=== PATIENT | female | born 1945 | race Caucasian/White ===

== ENCOUNTER 2018-04-09 16:21 | Inpatient (IN) | payer MEDICARE, MEDICAID ==
[2018-04-09] MEDS: ADVAIR HFA 115/21MCG INHALER INH (04:41)
[2018-04-09 15:44] LABS: BASO % 0.3 % (0.0-1.0); EOS # 0.1 10^3/uL (0.0-0.50); EOS % 0.9 % (0.0-3.0); HEMATOCRIT 34.4 % (36.0-47.0); HEMOGLOBIN 11.2 g/dl (12.0-15.5); IMMATURE GRANULOCYTE % 0.7 % (0-3.0); LYMPH # 2.1 10^3/uL (1.5-4.5); LYMPH % 24.1 % (24.0-44.0); MEAN CORPUSCULAR HEMOGLOBIN 28.6 pg (27.0-33.0); MEAN CORPUSCULAR HGB CONC 32.6 g/dl (32.0-36.5); MEAN CORPUSCULAR VOLUME 87.8 fl (80.0-96.0); MONO # 0.4 10^3/uL (0.0-0.8); MONO % 4.7 % (0.0-5.0); NEUTROPHILS % 69.3 % (36.0-66.0); PLATELET COUNT, AUTOMATED 181 10^3/uL (150-450); RED BLOOD COUNT 3.92 10^6/uL (4.00-5.40); RED CELL DISTRIBUTION WIDTH 13.8 % (11.5-14.5); WHITE BLOOD COUNT 8.7 10^3/uL (4.0-10.0)
[2018-04-09 15:47] LABS: BEDSIDE GLUCOSE 192 MG/DL (83-110)
[2018-04-09 16:04] LABS: ABG BASE EXCESS -2.6 (-2.0-2.0); ABG HCO3 26.7 MEQ/L (22.0-26.0); ABG O2 SATURATION 94.4 % (95.0-99.0); ABG PARTIAL PRESSURE O2 82.6 mmHg (75.0-100.0); ABG STANDARD HCO3 22.2 MEQ/L (22.0-26.0); ABG TOTAL CO2 28.8 MEQ/L (23.0-31.0); ALBUMIN 3.4 GM/DL (3.2-5.2); ALBUMIN/GLOBULIN RATIO 0.87 (1.00-1.93); ALKALINE PHOSPHATASE 56 U/L (45-117); ALT/SGPT 12 U/L (12-78); ANION GAP 9 MEQ/L (8-16); AST/SGOT 13 U/L (7-37); BILIRUBIN,DIRECT < 0.1 MG/DL (0.0-0.2); BILIRUBIN,TOTAL 0.3 MG/DL (0.2-1.0); BLOOD UREA NITROGEN 23 MG/DL (7-18); CALCIUM LEVEL 8.4 MG/DL (8.8-10.2); CARBON DIOXIDE LEVEL 28 MEQ/L (21-32); CHLORIDE LEVEL 94 MEQ/L (98-107); CREATININE FOR GFR 1.47 MG/DL (0.55-1.30); GLOMERULAR FILTRATION RATE 37.2 (>39); GLUCOSE, FASTING 185 MG/DL (70-100); SODIUM LEVEL 131 MEQ/L (136-145); TOTAL PROTEIN 7.3 GM/DL (6.4-8.2)
[2018-04-09 16:07] LABS: ABG PARTIAL PRESSURE CO2 69.5 mmHg (35.0-45.0); ABG pH (ARTERIAL) 7.202 UNITS (7.350-7.450); POTASSIUM SERUM 5.4 MEQ/L (3.5-5.1)
[2018-04-09 16:14] LABS: VALPROIC ACID (DEPAKOTE) 82.8 UG/ML (50.0-100.0)
[2018-04-09] MEDS: NALOXONE INJ 0.4 MG/1 ML VIAL (J2310) IV (16:19)
[2018-04-09 17:48] LABS: KETONE, URINE AUTO RFX TRACE mg/dL (NEGATIVE); LEUKOCYTE ESTERASE UR AUTO RFX NEGATIVE (NEGATIVE); MUCUS, URINE RFX SMALL (NEGATIVE); NITRITE, URINE AUTO RFX NEGATIVE (NEGATIVE); RBC, URINE AUTO RFX 1 /HPF (0-3); SPECIFIC GRAVITY UR AUTO RFX 1.021 (1.002-1.035); SQUAM EPITHELIAL CELL UR AURFX 0 /HPF (0-6); WBC, URINE AUTO RFX 0 /HPF (0-3)
[2018-04-09 18:14] LABS: LACTIC ACID SEPSIS PROTOCOL 1.8 MMOL/L (0.4-2.0)
[2018-04-09] MEDS: NS 1,000 ML IV ×2 (18:36→21:50)
[2018-04-09] MEDS: DIVALPROEX 500MG *ER* TAB PO (21:00)
[2018-04-09] MEDS: GABAPENTIN 300 MG CAP PO (21:00)
[2018-04-09 21:19] LABS: ABG BASE EXCESS -0.6 (-2.0-2.0); ABG HCO3 26.3 MEQ/L (22.0-26.0); ABG O2 SATURATION 99.1 % (95.0-99.0); ABG PARTIAL PRESSURE CO2 53.5 mmHg (35.0-45.0); ABG PARTIAL PRESSURE O2 157.5 mmHg (75.0-100.0); ABG TOTAL CO2 27.9 MEQ/L (23.0-31.0); ABG pH (ARTERIAL) 7.309 UNITS (7.350-7.450)
[2018-04-09] MEDS ORDERED: GLUCOSE 4 GM CHEW TABLET PO (21:30)
[2018-04-09] MEDS ORDERED: GLUCAGON FOR INJ 1 MG VIAL (J1610) SC (21:30)
[2018-04-09] MEDS ORDERED: DEXTROSE 50% 50 ML SYRINGE IV (21:30)
[2018-04-09] MEDS ORDERED: IPRATROPIUM 0.5MG/ALBUTEROL 2.5MG INH SOL UD 3ML (DUONEB)(J7620) NEB (21:30)
[2018-04-09 23:12] LABS: AMPHETAMINES LEVEL URINE NEGATIVE (NEGATIVE); BARBITURATES URINE NEGATIVE (NEGATIVE); BENZODIAZEPINES URINE NEGATIVE (NEGATIVE); CANNABINOIDS URINE NEGATIVE (NEGATIVE); COCAINE METABOLITE URINE NEGATIVE (NEGATIVE); METHADONE URINE NEGATIVE (NEGATIVE); OPIATES URINE POSITIVE (NEGATIVE); PHENCYCLIDINE URINE NEGATIVE (NEGATIVE)
[2018-04-10 00:51] LABS: BEDSIDE GLUCOSE 110 MG/DL (83-110)
[2018-04-10] MEDS: FAMOTIDINE IV BAG 20 MG in APPROPRIATE DILUENT 1 EA IV ×3 (00:51→20:20)
[2018-04-10] MEDS: HEPARIN SOD (PORCINE) 5000 UNITS/ML VIAL SC ×2 (00:54→06:12)
[2018-04-10 03:06] LABS: POTASSIUM SERUM 6.2 MEQ/L (3.5-5.1)
[2018-04-10] MEDS ORDERED: SOD POLYSTYRENE SULFONATE SUSP 30 GM/120 ML ENEMA PR (04:00)
[2018-04-10] MEDS: NS 1,000 ML IV ×3 (04:19→22:12)
[2018-04-10] MEDS: SOD POLYSTYRENE SULFONATE SUSP 15 GM/60 ML UD PR (04:19)
[2018-04-10] MEDS: NALOXONE INJ 0.4 MG/1 ML VIAL (J2310) IV (04:26)
[2018-04-10 04:29] LABS: ABG BASE EXCESS -0.5 (-2.0-2.0); ABG HCO3 28.5 MEQ/L (22.0-26.0); ABG PARTIAL PRESSURE CO2 71.8 mmHg (35.0-45.0); ABG PARTIAL PRESSURE O2 100.4 mmHg (75.0-100.0); ABG STANDARD HCO3 24.1 MEQ/L (22.0-26.0); ABG TOTAL CO2 30.7 MEQ/L (23.0-31.0); ABG pH (ARTERIAL) 7.216 UNITS (7.350-7.450)
[2018-04-10] MEDS: IPRATROPIUM 0.5MG/ALBUTEROL 2.5MG INH SOL UD 3ML (DUONEB)(J7620) NEB ×5 (04:35→23:30)
[2018-04-10] MEDS: HumaLOG INSULIN (NovoLOG) PER UNIT SC ×5 (06:00→23:35)
[2018-04-10] MEDS: LEVOTHYROXINE 88MCG TABLET (0.088 MG) PO (06:00)
[2018-04-10 06:12] LABS: ABG BASE EXCESS -3.4 (-2.0-2.0); ABG HCO3 24.6 MEQ/L (22.0-26.0); ABG O2 SATURATION 98.1 % (95.0-99.0); ABG PARTIAL PRESSURE CO2 59.9 mmHg (35.0-45.0); ABG PARTIAL PRESSURE O2 118.1 mmHg (75.0-100.0); ABG STANDARD HCO3 21.6 MEQ/L (22.0-26.0); ABG TOTAL CO2 26.4 MEQ/L (23.0-31.0)
[2018-04-10 06:12] LABS: BEDSIDE GLUCOSE 98 MG/DL (83-110)
[2018-04-10 06:13] LABS: ABG pH (ARTERIAL) 7.231 UNITS (7.350-7.450)
[2018-04-10 06:17] LABS: BASO % 0.1 % (0.0-1.0); EOS # 0.1 10^3/uL (0.0-0.50); EOS % 0.8 % (0.0-3.0); HEMATOCRIT 29.4 % (36.0-47.0); HEMOGLOBIN 9.4 g/dl (12.0-15.5); IMMATURE GRANULOCYTE % 0.8 % (0-3.0); LYMPH # 1.7 10^3/uL (1.5-4.5); LYMPH % 19.2 % (24.0-44.0); MEAN CORPUSCULAR HEMOGLOBIN 28.3 pg (27.0-33.0); MEAN CORPUSCULAR VOLUME 88.6 fl (80.0-96.0); MONO # 1.2 10^3/uL (0.0-0.8); MONO % 13.6 % (0.0-5.0); NEUTROPHILS # 5.8 10^3/uL (1.8-7.7); NEUTROPHILS % 65.5 % (36.0-66.0); PLATELET COUNT, AUTOMATED 149 10^3/uL (150-450); RED BLOOD COUNT 3.32 10^6/uL (4.00-5.40); WHITE BLOOD COUNT 8.9 10^3/uL (4.0-10.0)
[2018-04-10 06:44] LABS: ALBUMIN/GLOBULIN RATIO 0.94 (1.00-1.93); ALKALINE PHOSPHATASE 45 U/L (45-117); ALT/SGPT 11 U/L (12-78); ANION GAP 5 MEQ/L (8-16); AST/SGOT 9 U/L (7-37); BILIRUBIN,TOTAL 0.2 MG/DL (0.2-1.0); BLOOD UREA NITROGEN 24 MG/DL (7-18); CALCIUM LEVEL 7.5 MG/DL (8.8-10.2); CARBON DIOXIDE LEVEL 29 MEQ/L (21-32); CHLORIDE LEVEL 101 MEQ/L (98-107); CREATININE FOR GFR 1.38 MG/DL (0.55-1.30); GLUCOSE, FASTING 89 MG/DL (70-100); SODIUM LEVEL 135 MEQ/L (136-145); TOTAL PROTEIN 6.2 GM/DL (6.4-8.2)
[2018-04-10 06:49] LABS: POTASSIUM SERUM 5.3 MEQ/L (3.5-5.1)
[2018-04-10] MEDS: ADVAIR HFA 115/21MCG INHALER INH ×2 (07:29→20:00)
[2018-04-10 07:37] LABS: BEDSIDE GLUCOSE 94 MG/DL (83-110)
[2018-04-10 08:26] LABS: ABG BASE EXCESS -1.9 (-2.0-2.0); ABG HCO3 26.4 MEQ/L (22.0-26.0); ABG O2 SATURATION 97.4 % (95.0-99.0); ABG PARTIAL PRESSURE O2 103.5 mmHg (75.0-100.0); ABG STANDARD HCO3 22.9 MEQ/L (22.0-26.0); ABG TOTAL CO2 28.3 MEQ/L (23.0-31.0)
[2018-04-10 08:30] LABS: ABG PARTIAL PRESSURE CO2 64.1 mmHg (35.0-45.0); ABG pH (ARTERIAL) 7.232 UNITS (7.350-7.450)
[2018-04-10] MEDS: GABAPENTIN 300 MG CAP PO ×3 (09:00→20:20)
[2018-04-10] MEDS: LISINOPRIL 5 MG TAB PO (09:00)
[2018-04-10 09:15] LABS: POTASSIUM SERUM 5.3 MEQ/L (3.5-5.1)
[2018-04-10 09:50] LABS: ABG BASE EXCESS 2.1 (-2.0-2.0); ABG HCO3 30.6 MEQ/L (22.0-26.0); ABG O2 SATURATION 93.8 % (95.0-99.0); ABG PARTIAL PRESSURE O2 73.3 mmHg (75.0-100.0); ABG STANDARD HCO3 26.3 MEQ/L (22.0-26.0); ABG TOTAL CO2 32.8 MEQ/L (23.0-31.0)
[2018-04-10 09:54] LABS: ABG PARTIAL PRESSURE CO2 71.6 mmHg (35.0-45.0); ABG SITE RT RADIAL; ABG pH (ARTERIAL) 7.248 UNITS (7.350-7.450)
[2018-04-10 10:56] LABS: ABG BASE EXCESS 1.6 (-2.0-2.0); ABG HCO3 30.7 MEQ/L (22.0-26.0); ABG O2 SATURATION 94.4 % (95.0-99.0); ABG PARTIAL PRESSURE O2 79.6 mmHg (75.0-100.0); ABG STANDARD HCO3 25.8 MEQ/L (22.0-26.0); ABG TOTAL CO2 33.1 MEQ/L (23.0-31.0)
[2018-04-10] MEDS ORDERED: MIDAZOLAM INJ 2 MG/2 ML VIAL (J2250) As Ordered ×2 (10:57→11:02)
[2018-04-10 10:59] LABS: ABG PARTIAL PRESSURE CO2 77.5 mmHg (35.0-45.0); ABG SITE RT RADIAL; ABG pH (ARTERIAL) 7.216 UNITS (7.350-7.450)
[2018-04-10] MEDS ORDERED: PROPOFOL 1,000 MG/100 ML VIAL As Ordered (11:07)
[2018-04-10] MEDS: MIDAZOLAM INJ 2 MG/2 ML VIAL (J2250) IV ×2 (11:10→12:14)
[2018-04-10] MEDS: PROPOFOL 1,000 MG in APPROPRIATE DILUENT 1 EA IV ×2 (11:50→14:22)
[2018-04-10 12:00] LABS: ABG BASE EXCESS 3.4 (-2.0-2.0); ABG HCO3 28.5 MEQ/L (22.0-26.0); ABG O2 SATURATION 96.7 % (95.0-99.0); ABG PARTIAL PRESSURE O2 82.3 mmHg (75.0-100.0); ABG STANDARD HCO3 27.5 MEQ/L (22.0-26.0); ABG TOTAL CO2 29.9 MEQ/L (23.0-31.0)
[2018-04-10 12:22] LABS: AMMONIA 16 uMOL/L (<32)
[2018-04-10 12:24] LABS: VALPROIC ACID (DEPAKOTE) 53.4 UG/ML (50.0-100.0)
[2018-04-10 13:56] LABS: BEDSIDE GLUCOSE 115 MG/DL (83-110)
[2018-04-10] MEDS: methylPREDNISolone INJ 125 MG/2 ML VIAL (J2930) IV (17:02)
[2018-04-10 19:08] LABS: BEDSIDE GLUCOSE 114 MG/DL (83-110)
[2018-04-10] MEDS: DIVALPROEX 500MG *ER* TAB PO (20:20)
[2018-04-10] MEDS: CHLORHEXIDINE ORAL RINSE 0.12%/15ML 120ML BOTTLE MT (20:20)
[2018-04-10] MEDS: LevoFLOXacin IV 500 MG in APPROPRIATE DILUENT 1 EA IV (22:11)
[2018-04-10 23:33] LABS: BEDSIDE GLUCOSE 209 MG/DL (83-110)
[2018-04-11] MEDS: methylPREDNISolone INJ 125 MG/2 ML VIAL (J2930) IV ×2 (00:51→08:19)
[2018-04-11] MEDS: IPRATROPIUM 0.5MG/ALBUTEROL 2.5MG INH SOL UD 3ML (DUONEB)(J7620) NEB ×6 (04:05→23:46)
[2018-04-11 04:30] LABS: HEMATOCRIT 28.3 % (36.0-47.0); HEMOGLOBIN 9.2 g/dl (12.0-15.5); MEAN CORPUSCULAR HEMOGLOBIN 28.8 pg (27.0-33.0); MEAN CORPUSCULAR HGB CONC 32.5 g/dl (32.0-36.5); MEAN CORPUSCULAR VOLUME 88.4 fl (80.0-96.0); PLATELET COUNT, AUTOMATED 135 10^3/uL (150-450); RED CELL DISTRIBUTION WIDTH 14.3 % (11.5-14.5); WHITE BLOOD COUNT 5.7 10^3/uL (4.0-10.0)
[2018-04-11 04:46] LABS: ALBUMIN 2.5 GM/DL (3.2-5.2); ALBUMIN/GLOBULIN RATIO 0.74 (1.00-1.93); ALKALINE PHOSPHATASE 38 U/L (45-117); ALT/SGPT 9 U/L (12-78); ANION GAP 12 MEQ/L (8-16); AST/SGOT 6 U/L (7-37); BILIRUBIN,TOTAL 0.2 MG/DL (0.2-1.0); BLOOD UREA NITROGEN 17 MG/DL (7-18); CALCIUM LEVEL 7.7 MG/DL (8.8-10.2); CARBON DIOXIDE LEVEL 23 MEQ/L (21-32); CHLORIDE LEVEL 105 MEQ/L (98-107); GLOMERULAR FILTRATION RATE 42.9 (>39); GLUCOSE, FASTING 177 MG/DL (70-100); POTASSIUM SERUM 4.3 MEQ/L (3.5-5.1); SODIUM LEVEL 140 MEQ/L (136-145); TOTAL PROTEIN 5.9 GM/DL (6.4-8.2)
[2018-04-11] MEDS: HumaLOG INSULIN (NovoLOG) PER UNIT SC ×4 (05:06→20:35)
[2018-04-11] MEDS: LEVOTHYROXINE 88MCG TABLET (0.088 MG) PO (05:10)
[2018-04-11] MEDS: NS 1,000 ML IV ×3 (05:11→20:31)
[2018-04-11 06:04] LABS: ABG BASE EXCESS -3.1 (-2.0-2.0); ABG HCO3 21.4 MEQ/L (22.0-26.0); ABG O2 SATURATION 97.2 % (95.0-99.0); ABG PARTIAL PRESSURE CO2 35.9 mmHg (35.0-45.0); ABG PARTIAL PRESSURE O2 93.7 mmHg (75.0-100.0); ABG STANDARD HCO3 21.9 MEQ/L (22.0-26.0); ABG TOTAL CO2 22.5 MEQ/L (23.0-31.0); ABG pH (ARTERIAL) 7.393 UNITS (7.350-7.450)
[2018-04-11] MEDS: ADVAIR HFA 115/21MCG INHALER INH ×2 (07:12→19:38)
[2018-04-11 07:54] LABS: AMMONIA 33 uMOL/L (<32)
[2018-04-11 07:57] LABS: VALPROIC ACID (DEPAKOTE) 35.5 UG/ML (50.0-100.0)
[2018-04-11] MEDS ORDERED: PILL CRUSHER/CUTTER 1 EACH XX (08:15)
[2018-04-11] MEDS: VERAPAMIL HCL 5 MG/2 ML VIAL IV (08:20)
[2018-04-11] MEDS: GABAPENTIN 300 MG CAP PO ×3 (08:27→20:32)
[2018-04-11] MEDS: FAMOTIDINE IV BAG 20 MG in APPROPRIATE DILUENT 1 EA IV ×2 (08:28→20:33)
[2018-04-11] MEDS: LISINOPRIL 5 MG TAB PO (08:28)
[2018-04-11] MEDS: CHLORHEXIDINE ORAL RINSE 0.12%/15ML 120ML BOTTLE MT (08:29)
[2018-04-11 09:24] LABS: ABG BASE EXCESS -1.3 (-2.0-2.0); ABG HCO3 23.2 MEQ/L (22.0-26.0); ABG O2 SATURATION 97.5 % (95.0-99.0); ABG PARTIAL PRESSURE CO2 38.3 mmHg (35.0-45.0); ABG PARTIAL PRESSURE O2 93.7 mmHg (75.0-100.0); ABG STANDARD HCO3 23.4 MEQ/L (22.0-26.0); ABG TOTAL CO2 24.4 MEQ/L (23.0-31.0); ABG pH (ARTERIAL) 7.401 UNITS (7.350-7.450)
[2018-04-11 11:36] LABS: ABG BASE EXCESS -0.8 (-2.0-2.0); ABG HCO3 24.3 MEQ/L (22.0-26.0); ABG O2 SATURATION 96.5 % (95.0-99.0); ABG STANDARD HCO3 23.8 MEQ/L (22.0-26.0); ABG TOTAL CO2 25.6 MEQ/L (23.0-31.0)
[2018-04-11 12:44] LABS: BEDSIDE GLUCOSE 182 MG/DL (83-110)
[2018-04-11 17:10] LABS: BEDSIDE GLUCOSE 151 MG/DL (83-110)
[2018-04-11] MEDS: methylPREDNISolone INJ 40 MG/1 ML VIAL (J2920) IV (17:24)
[2018-04-11] MEDS: DIVALPROEX 500MG *ER* TAB PO (20:31)
[2018-04-11 20:37] LABS: BEDSIDE GLUCOSE 186 MG/DL (83-110)
[2018-04-11] MEDS: LevoFLOXacin IV 500 MG in APPROPRIATE DILUENT 1 EA IV (22:24)
[2018-04-12] MEDS: methylPREDNISolone INJ 40 MG/1 ML VIAL (J2920) IV ×3 (01:00→17:11)
[2018-04-12] MEDS: IPRATROPIUM 0.5MG/ALBUTEROL 2.5MG INH SOL UD 3ML (DUONEB)(J7620) NEB ×6 (04:14→23:59)
[2018-04-12 05:12] LABS: HEMATOCRIT 29.9 % (36.0-47.0); HEMOGLOBIN 9.7 g/dl (12.0-15.5); MEAN CORPUSCULAR HGB CONC 32.4 g/dl (32.0-36.5); MEAN CORPUSCULAR VOLUME 89.3 fl (80.0-96.0); PLATELET COUNT, AUTOMATED 159 10^3/uL (150-450); RED BLOOD COUNT 3.35 10^6/uL (4.00-5.40); WHITE BLOOD COUNT 14.1 10^3/uL (4.0-10.0)
[2018-04-12 05:46] LABS: ALBUMIN 2.6 GM/DL (3.2-5.2); ALBUMIN/GLOBULIN RATIO 0.76 (1.00-1.93); ALKALINE PHOSPHATASE 37 U/L (45-117); ALT/SGPT 9 U/L (12-78); ANION GAP 8 MEQ/L (8-16); AST/SGOT 12 U/L (7-37); BILIRUBIN,TOTAL 0.2 MG/DL (0.2-1.0); BLOOD UREA NITROGEN 21 MG/DL (7-18); CARBON DIOXIDE LEVEL 25 MEQ/L (21-32); CHLORIDE LEVEL 107 MEQ/L (98-107); CREATININE FOR GFR 1.13 MG/DL (0.55-1.30); GLOMERULAR FILTRATION RATE 50.4 (>39); GLUCOSE, FASTING 140 MG/DL (70-100); POTASSIUM SERUM 4.9 MEQ/L (3.5-5.1); SODIUM LEVEL 140 MEQ/L (136-145)
[2018-04-12] MEDS: LEVOTHYROXINE 88MCG TABLET (0.088 MG) PO (05:52)
[2018-04-12] MEDS: HEPARIN SOD (PORCINE) 5000 UNITS/ML VIAL SQ ×2 (08:20→20:30)
[2018-04-12] MEDS: HumaLOG INSULIN (NovoLOG) PER UNIT SC ×4 (08:20→21:00)
[2018-04-12] MEDS: FAMOTIDINE IV BAG 20 MG in APPROPRIATE DILUENT 1 EA IV ×2 (08:21→20:31)
[2018-04-12] MEDS: GABAPENTIN 300 MG CAP PO ×3 (08:23→20:31)
[2018-04-12] MEDS: LISINOPRIL 5 MG TAB PO (08:23)
[2018-04-12 08:28] LABS: C REACTIVE PROTEIN QUANTITATIV 2.27 MG/DL (0.00-0.30)
[2018-04-12] MEDS ORDERED: ALPRAZolam 0.5 MG TAB PO (08:45)
[2018-04-12] MEDS: guaiFENesin ER 600 MG TAB PO ×2 (11:22→20:30)
[2018-04-12] MEDS: ALPRAZolam 0.5 MG TAB PO (11:22)
[2018-04-12] MEDS: ADVAIR HFA 115/21MCG INHALER INH ×2 (11:32→18:38)
[2018-04-12 16:31] LABS: BEDSIDE GLUCOSE 153 MG/DL (83-110)
[2018-04-12] MEDS: DIVALPROEX 500MG *ER* TAB PO (20:31)
[2018-04-12 20:43] LABS: BEDSIDE GLUCOSE 113 MG/DL (83-110)
[2018-04-12] MEDS: LevoFLOXacin IV 500 MG in APPROPRIATE DILUENT 1 EA IV (21:31)
[2018-04-13] MEDS: methylPREDNISolone INJ 40 MG/1 ML VIAL (J2920) IV ×2 (01:56→12:32)
[2018-04-13] MEDS: IPRATROPIUM 0.5MG/ALBUTEROL 2.5MG INH SOL UD 3ML (DUONEB)(J7620) NEB ×6 (03:31→23:16)
[2018-04-13] MEDS: LEVOTHYROXINE 88MCG TABLET (0.088 MG) PO (06:37)
[2018-04-13] MEDS: ACETAMINOPHEN 500 MG TAB PO ×2 (06:37→17:09)
[2018-04-13 06:51] LABS: MEAN CORPUSCULAR HGB CONC 33.3 g/dl (32.0-36.5); PLATELET COUNT, AUTOMATED 185 10^3/uL (150-450); RED BLOOD COUNT 3.45 10^6/uL (4.00-5.40); RED CELL DISTRIBUTION WIDTH 14.8 % (11.5-14.5); WHITE BLOOD COUNT 16.3 10^3/uL (4.0-10.0)
[2018-04-13 07:10] LABS: ALBUMIN 2.7 GM/DL (3.2-5.2); ALBUMIN/GLOBULIN RATIO 0.82 (1.00-1.93); ALKALINE PHOSPHATASE 45 U/L (45-117); ALT/SGPT 11 U/L (12-78); ANION GAP 8 MEQ/L (8-16); AST/SGOT 10 U/L (7-37); BILIRUBIN,TOTAL 0.3 MG/DL (0.2-1.0); BLOOD UREA NITROGEN 30 MG/DL (7-18); C REACTIVE PROTEIN QUANTITATIV 0.91 MG/DL (0.00-0.30); CALCIUM LEVEL 8.5 MG/DL (8.8-10.2); CARBON DIOXIDE LEVEL 26 MEQ/L (21-32); CHLORIDE LEVEL 106 MEQ/L (98-107); CREATININE FOR GFR 1.17 MG/DL (0.55-1.30); GLOMERULAR FILTRATION RATE 48.4 (>39); GLUCOSE, FASTING 120 MG/DL (70-100); MAGNESIUM LEVEL 1.6 MG/DL (1.8-2.4); POTASSIUM SERUM 4.7 MEQ/L (3.5-5.1); SODIUM LEVEL 140 MEQ/L (136-145)
[2018-04-13] MEDS: HumaLOG INSULIN (NovoLOG) PER UNIT SC ×4 (07:30→20:39)
[2018-04-13] MEDS: GABAPENTIN 300 MG CAP PO ×3 (08:13→20:47)
[2018-04-13] MEDS: HEPARIN SOD (PORCINE) 5000 UNITS/ML VIAL SQ ×2 (08:13→20:47)
[2018-04-13] MEDS: FAMOTIDINE IV BAG 20 MG in APPROPRIATE DILUENT 1 EA IV (08:13)
[2018-04-13] MEDS: guaiFENesin ER 600 MG TAB PO ×2 (08:13→20:47)
[2018-04-13] MEDS: LISINOPRIL 5 MG TAB PO (08:17)
[2018-04-13] MEDS: ADVAIR HFA 115/21MCG INHALER INH ×2 (09:39→19:37)
[2018-04-13 11:26] LABS: BEDSIDE GLUCOSE 110 MG/DL (83-110)
[2018-04-13] MEDS: FUROSEMIDE 40 MG/4 ML VIAL (J1940) IV (12:32)
[2018-04-13] MEDS: LevoFLOXacin 500 MG TABLET PO (13:53)
[2018-04-13 16:52] LABS: BEDSIDE GLUCOSE 114 MG/DL (83-110)
[2018-04-13 20:17] LABS: BEDSIDE GLUCOSE 187 MG/DL (83-110)
[2018-04-13] MEDS: DIVALPROEX 500MG *ER* TAB PO (20:47)
[2018-04-14] MEDS: methylPREDNISolone INJ 40 MG/1 ML VIAL (J2920) IV (00:18)
[2018-04-14] MEDS: IPRATROPIUM 0.5MG/ALBUTEROL 2.5MG INH SOL UD 3ML (DUONEB)(J7620) NEB ×6 (03:24→23:08)
[2018-04-14] MEDS: LevoFLOXacin 500 MG TABLET PO (05:30)
[2018-04-14] MEDS: LEVOTHYROXINE 88MCG TABLET (0.088 MG) PO (05:30)
[2018-04-14 05:52] LABS: HEMATOCRIT 29.7 % (36.0-47.0); HEMOGLOBIN 10.1 g/dl (12.0-15.5); MEAN CORPUSCULAR HEMOGLOBIN 29.1 pg (27.0-33.0); MEAN CORPUSCULAR VOLUME 85.6 fl (80.0-96.0); PLATELET COUNT, AUTOMATED 146 10^3/uL (150-450); RED BLOOD COUNT 3.47 10^6/uL (4.00-5.40); RED CELL DISTRIBUTION WIDTH 14.9 % (11.5-14.5); WHITE BLOOD COUNT 12.5 10^3/uL (4.0-10.0)
[2018-04-14 06:19] LABS: ALBUMIN 2.8 GM/DL (3.2-5.2); ALBUMIN/GLOBULIN RATIO 0.82 (1.00-1.93); ALKALINE PHOSPHATASE 42 U/L (45-117); ALT/SGPT 12 U/L (12-78); ANION GAP 8 MEQ/L (8-16); AST/SGOT 11 U/L (7-37); BILIRUBIN,TOTAL 0.3 MG/DL (0.2-1.0); BLOOD UREA NITROGEN 33 MG/DL (7-18); CALCIUM LEVEL 8.8 MG/DL (8.8-10.2); CARBON DIOXIDE LEVEL 28 MEQ/L (21-32); CHLORIDE LEVEL 101 MEQ/L (98-107); CREATININE FOR GFR 1.29 MG/DL (0.55-1.30); GLOMERULAR FILTRATION RATE 43.2 (>39); GLUCOSE, FASTING 132 MG/DL (70-100); MAGNESIUM LEVEL 1.9 MG/DL (1.8-2.4); POTASSIUM SERUM 4.2 MEQ/L (3.5-5.1); SODIUM LEVEL 137 MEQ/L (136-145); TOTAL PROTEIN 6.2 GM/DL (6.4-8.2)
[2018-04-14] MEDS: ADVAIR HFA 115/21MCG INHALER INH ×2 (07:18→20:21)
[2018-04-14] MEDS: HumaLOG INSULIN (NovoLOG) PER UNIT SC ×4 (07:51→21:00)
[2018-04-14] MEDS: GABAPENTIN 300 MG CAP PO ×3 (08:38→20:48)
[2018-04-14] MEDS: LISINOPRIL 5 MG TAB PO (08:38)
[2018-04-14] MEDS: HEPARIN SOD (PORCINE) 5000 UNITS/ML VIAL SQ ×2 (08:39→20:47)
[2018-04-14] MEDS: guaiFENesin ER 600 MG TAB PO ×2 (08:39→20:47)
[2018-04-14] MEDS: ACETAMINOPHEN 500 MG TAB PO ×2 (08:39→15:41)
[2018-04-14] MEDS: SENOKOT S TAB PO ×2 (10:53→20:48)
[2018-04-14] MEDS: FUROSEMIDE 40 MG/4 ML VIAL (J1940) IV (10:54)
[2018-04-14 11:30] LABS: BEDSIDE GLUCOSE 89 MG/DL (83-110)
[2018-04-14 12:28] LABS: BEDSIDE GLUCOSE 133 MG/DL (83-110)
[2018-04-14 16:48] LABS: BEDSIDE GLUCOSE 96 MG/DL (83-110)
[2018-04-14 20:01] LABS: BEDSIDE GLUCOSE 129 MG/DL (83-110)
[2018-04-14] MEDS: DIVALPROEX 500MG *ER* TAB PO (20:48)
[2018-04-15] MEDS: IPRATROPIUM 0.5MG/ALBUTEROL 2.5MG INH SOL UD 3ML (DUONEB)(J7620) NEB ×5 (04:04→20:00)
[2018-04-15 06:07] LABS: HEMATOCRIT 30.1 % (36.0-47.0); HEMOGLOBIN 10.1 g/dl (12.0-15.5); MEAN CORPUSCULAR HEMOGLOBIN 28.7 pg (27.0-33.0); MEAN CORPUSCULAR HGB CONC 33.6 g/dl (32.0-36.5); MEAN CORPUSCULAR VOLUME 85.5 fl (80.0-96.0); PLATELET COUNT, AUTOMATED 136 10^3/uL (150-450); RED BLOOD COUNT 3.52 10^6/uL (4.00-5.40); RED CELL DISTRIBUTION WIDTH 14.7 % (11.5-14.5); WHITE BLOOD COUNT 9.5 10^3/uL (4.0-10.0)
[2018-04-15 06:08] LABS: POS COUNT POS FLAG
[2018-04-15 06:26] LABS: ALBUMIN 2.5 GM/DL (3.2-5.2); ALBUMIN/GLOBULIN RATIO 0.93 (1.00-1.93); ALKALINE PHOSPHATASE 36 U/L (45-117); ALT/SGPT 11 U/L (12-78); ANION GAP 11 MEQ/L (8-16); AST/SGOT 9 U/L (7-37); BILIRUBIN,TOTAL 0.3 MG/DL (0.2-1.0); BLOOD UREA NITROGEN 31 MG/DL (7-18); C REACTIVE PROTEIN QUANTITATIV < 0.30 MG/DL (0.00-0.30); CALCIUM LEVEL 8.5 MG/DL (8.8-10.2); CARBON DIOXIDE LEVEL 30 MEQ/L (21-32); CHLORIDE LEVEL 100 MEQ/L (98-107); CREATININE FOR GFR 1.42 MG/DL (0.55-1.30); GLOMERULAR FILTRATION RATE 38.7 (>39); GLUCOSE, FASTING 81 MG/DL (70-100); MAGNESIUM LEVEL 1.6 MG/DL (1.8-2.4); POTASSIUM SERUM 3.8 MEQ/L (3.5-5.1); SODIUM LEVEL 141 MEQ/L (136-145); TOTAL PROTEIN 5.2 GM/DL (6.4-8.2)
[2018-04-15] MEDS: LEVOTHYROXINE 88MCG TABLET (0.088 MG) PO (06:44)
[2018-04-15] MEDS: LevoFLOXacin 500 MG TABLET PO (06:45)
[2018-04-15] MEDS: HumaLOG INSULIN (NovoLOG) PER UNIT SC ×4 (07:30→20:00)
[2018-04-15] MEDS: ADVAIR HFA 115/21MCG INHALER INH ×2 (07:37→20:09)
[2018-04-15] MEDS: HEPARIN SOD (PORCINE) 5000 UNITS/ML VIAL SQ ×2 (08:24→20:05)
[2018-04-15] MEDS: MAG SULF 1GM/100ML (MAG RUN) 1 GM in APPROPRIATE DILUENT 1 EA IV (08:24)
[2018-04-15] MEDS: LISINOPRIL 5 MG TAB PO (08:25)
[2018-04-15] MEDS: GABAPENTIN 300 MG CAP PO ×3 (08:25→20:05)
[2018-04-15] MEDS: SENOKOT S TAB PO ×2 (08:25→20:05)
[2018-04-15] MEDS: predniSONE 20 MG TAB PO (08:25)
[2018-04-15] MEDS: guaiFENesin ER 600 MG TAB PO ×2 (08:25→20:04)
[2018-04-15 11:32] LABS: BEDSIDE GLUCOSE 114 MG/DL (83-110)
[2018-04-15 16:46] LABS: BEDSIDE GLUCOSE 117 MG/DL (83-110)
[2018-04-15 19:44] LABS: BEDSIDE GLUCOSE 173 MG/DL (83-110)
[2018-04-15] MEDS: DIVALPROEX 500MG *ER* TAB PO (20:05)
[2018-04-16] MEDS: IPRATROPIUM 0.5MG/ALBUTEROL 2.5MG INH SOL UD 3ML (DUONEB)(J7620) NEB ×4 (00:33→12:18)
[2018-04-16] MEDS: LevoFLOXacin 500 MG TABLET PO (05:35)
[2018-04-16] MEDS: LEVOTHYROXINE 88MCG TABLET (0.088 MG) PO (05:35)
[2018-04-16 06:00] LABS: HEMATOCRIT 27.9 % (36.0-47.0); HEMOGLOBIN 9.3 g/dl (12.0-15.5); MEAN CORPUSCULAR HEMOGLOBIN 28.6 pg (27.0-33.0); MEAN CORPUSCULAR HGB CONC 33.3 g/dl (32.0-36.5); MEAN CORPUSCULAR VOLUME 85.8 fl (80.0-96.0); PLATELET COUNT, AUTOMATED 182 10^3/uL (150-450); RED BLOOD COUNT 3.25 10^6/uL (4.00-5.40); RED CELL DISTRIBUTION WIDTH 14.5 % (11.5-14.5); WHITE BLOOD COUNT 10.4 10^3/uL (4.0-10.0)
[2018-04-16 06:25] LABS: ALBUMIN 2.7 GM/DL (3.2-5.2); ALBUMIN/GLOBULIN RATIO 1.08 (1.00-1.93); ALKALINE PHOSPHATASE 36 U/L (45-117); ALT/SGPT 11 U/L (12-78); ANION GAP 6 MEQ/L (8-16); AST/SGOT 9 U/L (7-37); BILIRUBIN,TOTAL 0.3 MG/DL (0.2-1.0); BLOOD UREA NITROGEN 33 MG/DL (7-18); C REACTIVE PROTEIN QUANTITATIV < 0.30 MG/DL (0.00-0.30); CALCIUM LEVEL 8.5 MG/DL (8.8-10.2); CARBON DIOXIDE LEVEL 32 MEQ/L (21-32); CHLORIDE LEVEL 99 MEQ/L (98-107); CREATININE FOR GFR 1.32 MG/DL (0.55-1.30); GLOMERULAR FILTRATION RATE 42.1 (>39); GLUCOSE, FASTING 104 MG/DL (70-100); MAGNESIUM LEVEL 1.7 MG/DL (1.8-2.4); POTASSIUM SERUM 3.8 MEQ/L (3.5-5.1); SODIUM LEVEL 137 MEQ/L (136-145); TOTAL PROTEIN 5.2 GM/DL (6.4-8.2)
[2018-04-16] MEDS: HumaLOG INSULIN (NovoLOG) PER UNIT SC ×2 (07:30→12:19)
[2018-04-16] MEDS: guaiFENesin ER 600 MG TAB PO (08:45)
[2018-04-16] MEDS: GABAPENTIN 300 MG CAP PO (08:45)
[2018-04-16] MEDS: predniSONE 20 MG TAB PO (08:45)
[2018-04-16] MEDS: SENOKOT S TAB PO (08:45)
[2018-04-16] MEDS: LISINOPRIL 5 MG TAB PO (08:46)
[2018-04-16] MEDS: HEPARIN SOD (PORCINE) 5000 UNITS/ML VIAL SQ (08:48)
[2018-04-16] MEDS: ADVAIR HFA 115/21MCG INHALER INH (12:17)
[2018-04-16 12:30] LABS: BEDSIDE GLUCOSE 99 MG/DL (83-110)
== END 2018-04-16 14:52 | disposition home or self-care (01) | DRG 917 ==
LOC: M MSPAV 04-12 14:35 → M ED 16:21 → M ED INP 20:32 → M ICU 22:47
PROC: 5A1935Z Respiratory Ventilation, Less than 24 Consecutive Hours (ICD-10-PCS; principal; 2018-04-10)
DX: T40.2X4A Poisoning by other opioids, undetermined, initial encounter (principal); J96.02 Acute respiratory failure with hypercapnia; G93.40 Encephalopathy, unspecified; J18.9 Pneumonia, unspecified organism; J96.01 Acute respiratory failure with hypoxia; N17.9 Acute kidney failure, unspecified; I10 Essential (primary) hypertension; E03.9 Hypothyroidism, unspecified; J44.9 Chronic obstructive pulmonary disease, unspecified; D64.9 Anemia, unspecified; E87.5 Hyperkalemia; E11.9 Type 2 diabetes mellitus without complications; Z79.899 Other long term (current) drug therapy; Z87.891 Personal history of nicotine dependence; G43.909 Migraine, unspecified, not intractable, without status migrainosus; I48.91 Unspecified atrial fibrillation; K57.30 Diverticulosis of large intestine without perforation or abscess without bleeding; Y92.009 Unspecified place in unspecified non-institutional (private) residence as the place of occurrence of the external cause

== ENCOUNTER 2019-05-04 12:15 | Day surgery (SDC) | payer MEDICARE, MEDICAID ==
[~2019-05-04] VITALS: Ht 167.6 cm; Wt 74.9 kg
[~2019-05-04 12:15] MED LIST: BREO1INH INH; CRES5TAB PO; DIVA500T9 PO; ECOT81TA5 PO; GABA600T4 PO; GLIM2TAB PO; HYDR12.55 PO; LEVA1TAB2 PO; LEVO88TA24 PO; LEVOTAB10 PO; LISI-542 PO; NS 1,000 ML IV ONE; OMEP20TA PO; PATIENT COMMENT; PRED10TA2 PO; STIO1AER IN
[2019-05-04] MEDS ORDERED: LIDOCAINE 2% INJ 100 MG/5 ML SDV (FOR ANES.) As Ordered ONE (14:01)
[2019-05-04] MEDS ORDERED: PROPOFOL 200 MG/20 ML VIAL As Ordered ONE (14:01)
[2019-05-04] MEDS ORDERED: fentaNYL 100 MCG/2 ML INJECTION (J3010) As Ordered ONE (14:31)
[2019-05-04] MEDS ORDERED: PHENYLephrine HCL 500 MCG/5 ML (100MCG/ML) SYRINGE (J2370) As Ordered ONE (15:04)
--- NOTE | 2019-05-04 15:12 | ROOR ---
Patient Name: Adrianne Ramirez Procedure Date: 05/04/2019 2:27 PM Date of : 1945 Age: 74 Room: [facility] Gender: Female Note Status: Finalized Procedure: Upper GI endoscopy Indications: Suspected esophageal reflux Providers: Davon Hayes Jr, MD Referring MD: KRISHNA Ayala Requesting Provider: Krishna Leung Medicines: Propofol per Anesthesia Complications: No immediate complications. Procedure: Pre-Anesthesia Assessment: - Prior to the procedure, a History and Physical was performed, and patient medications and allergies were reviewed. The patient is competent. The risks and benefits of the procedure and the sedation options and risks were discussed with the patient. All questions were answered and informed consent was obtained. Patient identification and proposed procedure were verified by the physician and the nurse in the pre-procedure area and in the procedure room. Mental Status Examination: alert and oriented. Airway Examination: normal oropharyngeal airway and neck mobility. Respiratory Examination: clear to auscultation. CV Examination: normal. ASA Grade Assessment: II - A patient with mild systemic disease. After reviewing the risks and benefits, the patient was deemed in satisfactory condition to undergo the procedure. The anesthesia plan was to use moderate sedation / analgesia (conscious sedation). Immediately prior to administration of medications, the patient was re-assessed for adequacy to receive sedatives. The heart rate, respiratory rate, oxygen saturations, blood pressure, adequacy of pulmonary ventilation, and response to care were monitored throughout the procedure. The physical status of the patient was re-assessed after the procedure. The Endoscope was introduced through the mouth, and advanced to the second part of duodenum. The upper GI endoscopy was accomplished without difficulty. The patient tolerated the procedure well. Findings: The upper third of the esophagus, middle third of the esophagus and lower third of the esophagus were normal. A small hiatal hernia was present. The cardia and gastric fundus were normal. Scattered moderate inflammation characterized by congestion (edema), erythema and friability was found in the gastric body and in the gastric antrum. Biopsies were taken with a cold forceps for histology. The first portion of the duodenum and second portion of the duodenum were normal. Patchy mild inflammation characterized by congestion (edema), erythema, friability and granularity was found in the duodenal bulb. Impression: - Normal upper third of esophagus, middle third of esophagus and lower third of esophagus. - Small hiatal hernia. - Normal cardia and gastric fundus. - Gastritis. Biopsied. - Normal first portion of the duodenum and second portion of the duodenum. - Duodenitis. Recommendation: - Discharge patient to home (ambulatory). - Return to my office as previously scheduled. Davon Hayes MD Davon Hayes Jr, MD 05/04/2019 3:12:20 PM Electronically signed by Davon Hayes Jr, MD Number of Addenda: 0 Note Initiated On: 05/04/2019 2:27 PM Estimated Blood Loss: Estimated blood loss: none.
[2019-05-04 15:35] VITALS: BP 102/61
--- NOTE | 2019-05-04 15:47 | ROOR ---
Patient Name: Adrianne Ramirez Procedure Date: 05/04/2019 2:28 PM Date of : 1945 Age: 74 Room: [facility] Gender: Female Note Status: Finalized Procedure: Colonoscopy Indications: Generalized abdominal pain Providers: Davon Hayes Jr, MD Referring MD: Krishna Leung Requesting Provider: Medicines: Propofol per Anesthesia Complications: No immediate complications. Procedure: Pre-Anesthesia Assessment: - Prior to the procedure, a History and Physical was performed, and patient medications and allergies were reviewed. The patient is competent. The risks and benefits of the procedure and the sedation options and risks were discussed with the patient. All questions were answered and informed consent was obtained. Patient identification and proposed procedure were verified by the physician and the nurse in the pre-procedure area and in the procedure room. Mental Status Examination: alert and oriented. Airway Examination: normal oropharyngeal airway and neck mobility. Respiratory Examination: clear to auscultation. CV Examination: normal. ASA Grade Assessment: II - A patient with mild systemic disease. After reviewing the risks and benefits, the patient was deemed in satisfactory condition to undergo the procedure. The anesthesia plan was to use moderate sedation / analgesia (conscious sedation). Immediately prior to administration of medications, the patient was re-assessed for adequacy to receive sedatives. The heart rate, respiratory rate, oxygen saturations, blood pressure, adequacy of pulmonary ventilation, and response to care were monitored throughout the procedure. The physical status of the patient was re-assessed after the procedure. The Colonoscope was introduced through the anus and advanced to the cecum, identified by appendiceal orifice and ileocecal valve. The colonoscopy was performed without difficulty. The patient tolerated the procedure well. The quality of the bowel preparation was adequate. Findings: The descending colon, transverse colon, ascending colon, cecum, appendiceal orifice and ileocecal valve appeared normal. Multiple small and large-mouthed diverticula were found in the sigmoid colon. Two polyps were found in the rectum and recto-sigmoid colon. The polyps were small in size. These polyps were removed with a cold snare. Resection and retrieval were complete. Impression: - The descending colon, transverse colon, ascending colon, cecum, appendiceal orifice and ileocecal valve are normal. - Diverticulosis in the sigmoid colon. - Two small polyps in the rectum and at the recto-sigmoid colon, removed with a cold snare. Resected and retrieved. Recommendation: - Discharge patient to home (ambulatory). - Repeat colonoscopy in 5-10 years for surveillance based on pathology results. Davon Hayes MD Davon Hayes Jr, MD 05/04/2019 3:46:24 PM Electronically signed by Davon Hayes Jr, MD Number of Addenda: 0 Note Initiated On: 05/04/2019 2:28 PM Estimated Blood Loss: Estimated blood loss: none.
== END 2019-05-04 15:58 | disposition home or self-care (01) ==
LOC: M OPP 12:15
PROVIDERS: ATTEND Surgery
DX: R10.84 Generalized abdominal pain (principal); K57.30 Diverticulosis of large intestine without perforation or abscess without bleeding; K62.1 Rectal polyp; D12.7 Benign neoplasm of rectosigmoid junction; R14.0 Abdominal distension (gaseous); R13.10 Dysphagia, unspecified; K21.9 Gastro-esophageal reflux disease without esophagitis; K44.9 Diaphragmatic hernia without obstruction or gangrene; K29.70 Gastritis, unspecified, without bleeding; K29.80 Duodenitis without bleeding; F17.210 Nicotine dependence, cigarettes, uncomplicated; J44.9 Chronic obstructive pulmonary disease, unspecified; G43.909 Migraine, unspecified, not intractable, without status migrainosus; D64.9 Anemia, unspecified; E03.9 Hypothyroidism, unspecified; G51.0 Bell's palsy; I10 Essential (primary) hypertension; E78.5 Hyperlipidemia, unspecified; E11.9 Type 2 diabetes mellitus without complications; K57.32 Diverticulitis of large intestine without perforation or abscess without bleeding; R12 Heartburn; M19.90 Unspecified osteoarthritis, unspecified site; R51 Headache; G93.41 Metabolic encephalopathy; R56.9 Unspecified convulsions; Z78.0 Asymptomatic menopausal state; Z88.8 Allergy status to other drugs, medicaments and biological substances; Z79.899 Other long term (current) drug therapy; Z79.84 Long term (current) use of oral hypoglycemic drugs
CPT/HCPCS: 43239; 45385; 88305; J2370; J3010

== ENCOUNTER → 2019-06-22 | Outpatient (CLI) | payer MEDICAID, MEDICARE ==
[~2019-06-22] MED LIST changes: +E-Z-GAS II EFFERVESCENT PACKET (SODIUM BICARB./CITRIC ACID/SIMETHICONE) As Ordered ONE; +E-Z-HD 98% w/w 340GM SUSP BTL As Ordered ONE; +E-Z-PAQUE 96% w/w SUSP 176GM BTL As Ordered ONE; -NS 1,000 ML IV ONE
--- NOTE | 2019-06-22 16:20 | REP ---
Esophagram The procedure was performed under the direct supervision of Dr. Bojorquez. The images were reviewed with Dr. Bojorquez. A single view PA chest x-ray is submitted as a brick mason film. The superior mediastinal structures are midline. The heart size is within normal limits. There are linear densities in the lower lung zones bilaterally which may represent bibasilar linear fibrosis or discoid atelectasis. Liquid barium and gas producing granules were given in the erect position as well as liquid barium in the prone oblique positions in order to perform a double contrast esophagram examination. During the oral and pharyngeal stages of deglutition there is laryngeal penetration. There are esophageal transport there are tertiary waves demonstrated. There is no esophagitis stricture or mucosal ring. There is a hiatal hernia. Gastroesophageal reflux is not demonstrated on this examination. Impression: 1. Laryngeal penetration 2. Tertiary waves 3. Hiatal hernia 0.7 minutes of fluoro time was utilized for this procedure. Reviewed by RICHARD Walsh 06/22/2019 04:11 P Electronically Signed by Rodrigue Bojorquez MD 06/22/2019 04:12 P
== END ==
LOC: M RAD 10:00
PROVIDERS: ATTEND Nurse Practitioner
DX: R13.10 Dysphagia, unspecified (principal); K44.9 Diaphragmatic hernia without obstruction or gangrene